=== PATIENT | female | born 1995 | race Caucasian/White ===

== ENCOUNTER 2018-12-15 21:38 | Emergency (ER) | payer MEDICAID ==
[~2018-12-15] VITALS: Ht 165.1 cm; Wt 54.4 kg
[2018-12-15] MEDS ORDERED: AZITHROMYCIN 300 MG/15 ML BOTTLE PO ONE (22:00)
[2018-12-15] MEDS ORDERED: AZITHROMYCIN 300 MG/15 ML BOTTLE ONE (22:04)
[2018-12-15 22:08] VITALS: BP 115/74
--- NOTE | 2018-12-15 22:08 | NUR ---
Patient discharged to home in stable conditon. Written and verbal after care instructions given. Patient verbalizes understanding of instructions.
== END 2018-12-15 22:10 | disposition home or self-care (01) ==
LOC: ER 21:38
DX: J02.9 Acute pharyngitis, unspecified (principal); Z88.0 Allergy status to penicillin
CPT/HCPCS: A4663; Q0144

== ENCOUNTER 2019-02-05 01:22 | Emergency (ER) | payer SELFPAY ==
[~2019-02-05] VITALS: Ht 160 cm; Wt 50.8 kg
--- NOTE | 2019-02-05 01:40 | NUR ---
Urine specimen collected and sent to lab, straw yellow, no blood noted,
[2019-02-05] MEDS ORDERED: LOPERAMIDE HCL 1 MG/5 ML UDC PO ONE (02:00)
[2019-02-05] MEDS ORDERED: ONDANSETRON ODT 4 MG TAB.RAPDIS SL ONE (02:00)
[2019-02-05 02:01] LABS: *BILIRUBIN,URIN NEGATIVE (NEGATIVE); *COLOR,URINE YELLOW (YELLOW); *KETONES,URINE NEGATIVE (NEGATIVE); *URINE HCG, QUAL NEGATIVE (NEGATIVE); *UROBILINOGEN,URINE 0.2 E.U./dl (NORMAL); LEUKOCYTE ESTERASE ,URINE TRACE (NEGATIVE); NITRITE, URINE NEGATIVE (NEGATIVE); PH,URINE 7.5 (5.0-8.0); UGLUCOSE NEGATIVE (NEGATIVE)
[2019-02-05 02:02] LABS: *BLOOD, URINE TRACE (NEGATIVE); *CLARITY,URINE HAZY (CLEAR)
[2019-02-05] MEDS ORDERED: ONDANSETRON ODT 4 MG TAB.RAPDIS ONE (02:14)
[2019-02-05] MEDS ORDERED: LOPERAMIDE HCL 1 MG/5 ML UDC ONE (02:14)
[2019-02-05] MEDS ORDERED: PANTOPRAZOLE SODIUM 40 MG TABLET.DR PO ONE (02:15)
[2019-02-05] MEDS: PANTOPRAZOLE ORAL SUSPENSION 40 MG SUSPDR.PKT GT SCH ×2 (02:18→02:20)
[2019-02-05 02:20] LABS: BACTERIA,URINE MODERATE /HPF (NONE SEEN); RBC,URINE 0-3 /HPF (0-3); WBC,URINE 0-3 /HPF (0-3)
[2019-02-05 02:21] LABS: SQUAMOUS EPITHELIAL CELL,UR MANY /HPF (NONE SEEN)
== END 2019-02-05 03:10 | disposition home or self-care (01) ==
LOC: ER 01:24
DX: A08.4 Viral intestinal infection, unspecified (principal); Z88.0 Allergy status to penicillin
CPT/HCPCS: 84703; 87077; 87086; A4663; Q0162